=== PATIENT | female | born 1975 | race Caucasian/White ===

== ENCOUNTER 2024-03-09 09:21 | Emergency (ER) | payer OTHER ==
[~2024-03-09] VITALS: Ht 149.9 cm; Wt 99.3 kg
[2024-03-09] MEDS ORDERED: LISINOPRIL10 MG PO (09:37)
[2024-03-09] MEDS ORDERED: KETOROLAC TROMETHAMINE 60 MG/2 ML VIAL IM ONE (10:00)
[2024-03-09] MEDS ORDERED: ACETAMINOPHEN 325 MG TAB PO ONE (10:00)
[2024-03-09] MEDS ORDERED: CYCLOBENZAPRINE HCL 10 MG TAB PO ONE (10:00)
[2024-03-09] MEDS ORDERED: HYDROCODONE/ACETA 7.5/325 TAB PO ONE (10:00)
[2024-03-09] MEDS ORDERED: HYDROmorphone HCL 2 MG/ML VIAL IM ONE (10:45)
[2024-03-09] MEDS ORDERED: LIDOCAINE HCL 4% 1 EACH PATCH TD ONE (11:15)
[2024-03-09] MEDS ORDERED: CYCLOBENZAPRINE10 MG PO (13:12)
[2024-03-09] MEDS ORDERED: HYDROCODON-ACE1 EA11 PO (13:12)
[2024-03-09 13:27] VITALS: BP 113/52
[2024-03-09] MEDS ORDERED: LIDOCAINE PATCH REMOVAL 1 EA TD SCH (21:00)
== END 2024-03-09 13:29 | disposition home or self-care (01) ==
LOC: ED 09:21
DX: M54.2 Cervicalgia (principal); I10 Essential (primary) hypertension; Z79.899 Other long term (current) drug therapy
CPT/HCPCS: 96372; 99283-25; A9270; J1171; J1885